=== PATIENT | male | born 1965 | race Caucasian/White ===

== ENCOUNTER 2017-01-08 20:56 | Emergency (ER) | payer OTHER ==
[~2017-01-08] VITALS: Ht 182.9 cm; Wt 83.9 kg
[~2017-01-08 20:56] MED LIST: BACTRIM DS TAB1 EACH PO; CEPHALEXIN500 MG PO; NORCO 5-325 TA1 EACH PO; PERCOCET 5-3251 EACH PO
[2017-01-08] MEDS ORDERED: NORCO 5-325 TA1 EACH PO (23:28)
[2017-01-09] MEDS ORDERED: PENICILLIN V P500 MG PO
== END 2017-01-09 00:04 | disposition home or self-care (01) ==
LOC: ED 20:56
DX: K02.9 Dental caries, unspecified (principal); F17.200 Nicotine dependence, unspecified, uncomplicated; Z88.6 Allergy status to analgesic agent; Z86.14 Personal history of Methicillin resistant Staphylococcus aureus infection
CPT/HCPCS: 99283

== ENCOUNTER 2017-05-18 18:18 | Emergency (ER) | payer MEDICAID ==
[~2017-05-18] VITALS: Ht 182.9 cm; Wt 83.9 kg
[~2017-05-18 18:18] MED LIST changes: +PENICILLIN V P500 MG PO
[2017-05-18] MEDS ORDERED: TRAMADOL HCL50 MG PO (20:43)
[2017-05-18] MEDS ORDERED: CRUTCH1 EACH MISC (21:01)
[2017-05-18] MEDS ORDERED: IBUPROFEN600 MG PO (21:03)
== END 2017-05-18 21:09 | disposition home or self-care (01) ==
LOC: ED 18:18
DX: S80.12XA Contusion of left lower leg, initial encounter (principal); F17.200 Nicotine dependence, unspecified, uncomplicated; Z88.6 Allergy status to analgesic agent; V89.2XXA Person injured in unspecified motor-vehicle accident, traffic, initial encounter
CPT/HCPCS: 93971; 99284